=== PATIENT | male | born 1995 | race Caucasian/White ===

== ENCOUNTER 2022-04-29 00:23 | Emergency (ER) | payer MEDICAID ==
[~2022-04-29] VITALS: Ht 172.7 cm; Wt 79.4 kg
[2022-04-29 00:33] VITALS: BP 130/86
[2022-04-29] MEDS ORDERED: TETRACAINE HCL/PF 0.5% OPTH 4 ML BTL ONE (00:36)
--- NOTE | 2022-04-29 00:40 | NUR ---
PT TO [facility] FOR EXAMINATION OF PROVIDER. OK PER DR. CORRAL TO PUT TETRACAINE 2 DROPS PER EYE.
[2022-04-29] MEDS ORDERED: TETRACAINE HCL/PF 0.5% OPTH 4 ML BTL OP ONE ×2 (00:45→00:50)
[2022-04-29] MEDS ORDERED: FLUORESCEIN OPTH STRIP 1 MG OP ONE (00:50)
[2022-04-29] MEDS ORDERED: ACET-8386 PO (01:00)
[2022-04-29] MEDS ORDERED: NAPR-54 PO (01:00)
--- NOTE | 2022-04-29 01:18 | NUR ---
DR. CORRAL WITH PT IN TRIAGE ROOM TO DO EYE EXAM. PT TOLERATED WELL
[2022-04-29 01:24] VITALS: BP 126/78
--- NOTE | 2022-04-29 01:26 | NUR ---
Patient discharged with v/s stable. Written and verbal after care instructions given and explained. Patient verbalized understanding. Ambulatory with steady gait. All questions addressed prior to discharge. Advised to follow up with PMD.
[2022-04-29] MEDS ORDERED: TOBR5SOL17 OP (05:49)
== END 2022-04-29 01:26 | disposition home or self-care (01) ==
LOC: MED 00:23
DX: H16.9 Unspecified keratitis (principal); Z79.899 Other long term (current) drug therapy
CPT/HCPCS: 99283